=== PATIENT | female | born 1995 | race American Indian/Alaskan Native ===

== ENCOUNTER 2020-12-16 10:53 | Emergency (ER) | payer SELFPAY ==
[2020-12-16 11:14] VITALS: BP 123/63
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
[2020-12-17] MEDS ORDERED: D5W/0.45% NACL/KCL 20 MEQ 20 MEQ/1,000 ML BAG IV ONE (05:08)
== END 2020-12-16 12:09 | disposition home or self-care (01) ==
LOC: ED 10:53
DX: T23.101A Burn of first degree of right hand, unspecified site, initial encounter (principal); V49.49XA Driver injured in collision with other motor vehicles in traffic accident, initial encounter; Y93.89 Activity, other specified; Y92.488 Other paved roadways as the place of occurrence of the external cause; Y99.8 Other external cause status
CPT/HCPCS: 99281